=== PATIENT | male | born 1995 | race Caucasian/White ===

== ENCOUNTER 2021-03-22 21:54 | Emergency (ER) | payer BC ==
[2021-03-22] MEDS ORDERED: ONDANSETRON 4 MG/2 ML VIAL IVP STA (22:05)
[2021-03-22] MEDS ORDERED: MORPHINE SULFATE 2 MG/ML SYRINGE IVP STA (22:05)
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
--- NOTE | 2021-03-22 22:26 | XR ---
EXAMINATION TYPE: XR wrist limited RT DATE OF EXAM: 03/22/2021 COMPARISON: NONE HISTORY: Wrist pain TECHNIQUE: 2 views FINDINGS: There is transverse fracture of the distal radial epiphysis. There is 100% lateral displace ment. There is also significantly displaced fracture ulnar styloid process. The carpal bones appear i ntact. Metacarpals are intact. IMPRESSION: Displaced fractures of the distal radius and ulna as above. No carpal bone fracture seen.
[2021-03-22] MEDS ORDERED: MORPHINE SULFATE 4 MG/ML SYRINGE IVP STA (22:30)
[2021-03-22] MEDS ORDERED: DIAZEPAM 5 MG/ML 2 ML INJ IVP STA (22:45)
[2021-03-22] MEDS ORDERED: ETOMIDATE 2 MG/ML 10 ML VIAL IVP STA (23:01)
--- NOTE | 2021-03-23 00:27 | XR ---
EXAMINATION TYPE: XR wrist limited RT DATE OF EXAM: 03/23/2021 COMPARISON: Today HISTORY: Post reduction TECHNIQUE: 2 views FINDINGS: There are comminuted fractures of the distal radius and ulna. There is significant improvem ent apposition and alignment of the fragments compared to initial exam. The carpal bones appear intac t. Metacarpals are intact. IMPRESSION: Significant anatomic reduction of the displaced radius and ulna fractures.
[2021-03-23 00:49] VITALS: RESP 18
[2021-03-23] MEDS ORDERED: ACET/COD 300 MG/30 MG STARTER PACK 6 TAB BTL PO STA (00:51)
[2021-03-23 02:16] VITALS: BP 151/72; PULSE 93; TEMP 98.5
== END 2021-03-23 01:41 | disposition home or self-care (01) ==
LOC: EC 21:54
DX: S52.91XA Unspecified fracture of right forearm, initial encounter for closed fracture (principal); S52.201A Unspecified fracture of shaft of right ulna, initial encounter for closed fracture; V28.4XXA Motorcycle driver injured in noncollision transport accident in traffic accident, initial encounter; Y92.410 Unspecified street and highway as the place of occurrence of the external cause
CPT/HCPCS: 73100 ×2; 25605; 96374; 96375 ×3; 99284; J2270 ×2; J3360; J2405; J0690

== ENCOUNTER → 2021-03-28 | Outpatient (CLI) | payer BC | END | disposition home or self-care (01) ==

== ENCOUNTER 2025-03-18 13:50 | Emergency (ER) | payer BC ==
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
[2025-03-18] MEDS: KETOROLAC 15 MG/ML 1 ML VIAL IM STA (14:45)
--- NOTE | 2025-03-18 15:06 | XR ---
EXAMINATION TYPE: XR shoulder complete RT, XR humerus RT DATE OF EXAM: 03/18/2025 2:37 PM INDICATION: Patient age:Male; 29 years old; Reason for study: fall; pain COMPARISON: None TECHNIQUE: The right shoulder was examined in AP, internally rotated and scapular Y projections. Th e right humerus was examined in AP and lateral projections. FINDINGS: Acute comminuted mildly displaced fracture of the right lateral humeral head involving the greater tu berosity. Approximately 5 mm of displacement. No dislocation. Widening of the right AC joint approxim ately 1 cm. No elevation of the clavicle. The remaining portions of the visualized chest are unremark able. IMPRESSION: 1. Acute comminuted mildly displaced fracture of the right humeral head involving the greater tubero sity. No dislocation. 2. Type 1 acute right AC joint injury. [facility], , 03/18/2025 3:04 PM
[2025-03-18] MEDS: HYDROcodone/APAP 5-325MG 1 EACH TAB PO STA (15:33)
[2025-03-18] MEDS: ACET/COD 300 MG/30 MG STARTER PACK 6 TAB BTL PO STA (15:34)
[2025-03-18 15:42] VITALS: BP 162/94; PULSE 79; RESP 19; TEMP 98.1
== END 2025-03-18 15:44 | disposition home or self-care (01) ==
LOC: EC 13:50
DX: S42.291A Other displaced fracture of upper end of right humerus, initial encounter for closed fracture (principal); S43.51XA Sprain of right acromioclavicular joint, initial encounter; X58.XXXA Exposure to other specified factors, initial encounter
CPT/HCPCS: 73030; 73060; 99283; 96372; J1885